=== PATIENT | female | born 1985 | race Hispanic/Latino ===

== ENCOUNTER 2023-05-28 11:51 | Outpatient (CLI) | payer OTHER | END 2023-05-28 11:52 | disposition home or self-care (01) | LOC: CSHMAMMO 11:51 | PROVIDERS: ATTEND Nurse Practitioner Family | DX: Z12.31 Encounter for screening mammogram for malignant neoplasm of breast (principal); Z80.3 Family history of malignant neoplasm of breast | CPT/HCPCS: 77063; 77067 ==

== ENCOUNTER 2024-07-21 14:50 | Outpatient (CLI) | payer BC | END 2024-07-21 14:51 | disposition home or self-care (01) | LOC: CSHMRI 14:50 | PROVIDERS: ATTEND Student in an Organized Health Care Education/Training Program | DX: M54.16 Radiculopathy, lumbar region (principal); Q76.49 Other congenital malformations of spine, not associated with scoliosis | CPT/HCPCS: 72148 ==